=== PATIENT | female | born 1980 | race Caucasian/White ===

== ENCOUNTER 2022-01-23 08:38 | Emergency (ER) | payer BC, SELFPAY ==
--- NOTE | ~2022-01-23 | CT_ITS ---
EXAMINATION: CT abdomen pelvis wo con DATE: 01/23/2022 09:48 INDICATION: Left flank pain and hematuria TECHNIQUE: Computed tomography (CT) of the abdomen and pelvis was performed without intravenous contr ast. The dose-length product was 347.03 mGy-cm. Automated exposure control and iterative reconstructi on technique were employed. COMPARISON: CT dated 12/07/2009. FINDINGS: Lung bases unremarkable. Heart size normal. No significant pleural or pericardial effusion. No significant vascular abnormality. No lymphadenopathy. Colonic diverticulosis without evidence for diverticulitis. Small fat-containing umbilical hernia. Nonobstructive bowel gas pattern. No free air or free fluid. There are cholecystectomy clips. There are no abnormal pelvic masses or fluid collecti ons. There is a punctate nonobstructing left renal stone, image 59 and 75. There is a distal left ureteral stone measuring 1-2 mm, axial image 126. No significant hydronephrosis. No right renal stones or hyd ronephrosis. There is fatty infiltration of the liver. Status post cholecystectomy. The spleen, pancr eas, adrenal glands are unremarkable. Small fat-containing umbilical hernia. Mild lumbar spondylosis. IMPRESSION: 1. Punctate 1-2 mm distal left ureteral stone without significant hydronephrosis. 2: Nonobstructing left nephrolithiasis. Reviewed, dictated and finalized at location B. IMPRESSION: 1. Punctate 1-2 mm distal left ureteral stone without significant hydronephrosi s. 2: Nonobstructing left nephrolithiasis.
[2022-01-23 08:40] VITALS: BP 138/72; PULSE 90; RESP 16; TEMP 36.3; O2SAT 98
[2022-01-23 08:49] VITALS: O2SAT 98
--- NOTE | 2022-01-23 08:52 | ED.BACK ---
HPI - Back Pain/Injury General Chief Complaint: Back Pain/Injury Stated Complaint: back pain Time Seen by Provider: 01/23/22 08:44 History of Present Illness HPI Narrative: 41-year-old female presents to the emergency room for evaluation of low back pain that has been present for over 6 months. Patient describes the pain as a dull throbbing pain and does not radiate. Patient states the pain is worse with movement specifically trunk rotation. Patient denies any abdominal pain. Patient states the pain does not radiate. Patient denies any saddle anesthesia. Patient denies any injury or trauma. Patient does admit to decreased urinary flow, but denies any hematuria. Related Data Home Medications Medication Instructions Recorded Confirmed alprazolam 0.25 mg tablet tablet 01/23/22 famotidine 40 mg tablet tablet 01/23/22 01/23/22 zolpidem 10 mg tablet tablet 01/23/22 01/23/22 Allergies Allergy/AdvReac Type Severity Reaction Status Date / Time No Known Allergies Allergy Verified 01/23/22 09:11 Review of Systems Review of Systems: CONSTITUTIONAL: Denies fever, chills, or sweats. EYES: Denies visual changes, redness, or discharge. ENT: Denies rhinorrhea, congestion, sore throat, or otalgia. CARDIOVASCULAR: Denies chest pain, palpitations, or edema. RESPIRATORY: Denies cough or dyspnea. GASTROINTESTINAL: Denies abdominal pain, nausea, vomiting, or diarrhea. GENITOURINARY: Denies dysuria or hematuria. SKIN: Denies rash or itching. MUSCULOSKELETAL: Reports low back pain NEUROLOGIC: Denies headache, numbness, dizziness, or weakness. PSYCHIATRIC: Denies anxiety or depression. [facility] Family History Family History Other Family history of gallbladder disease Social History Social History Smoking status: Former smoker Smoking end date: 08/18/11 Alcohol intake: never Exam Narrative: GENERAL: Well-appearing, well-nourished, and in no acute distress. HEAD: Normocephalic, atraumatic. EYES: PERRLA and EOMI. CHEST: Clear to auscultation. No respiratory distress. No wheezes rales or rhonchi HEART: Regular rate and rhythm. No murmur heard. Normal peripheral pulses. ABDOMEN: Soft, nontender, nondistended, normal active bowel sounds. No CVA tenderness EXTREMITIES: Normal range of motion. No edema. BACK: No midline lumbar tenderness, no step-offs. Tenderness to the thoracolumbar fascia, full range of motion, pain elicited with bilateral rotation of the lumbar spine SKIN: Warm, dry, no rash. NEURO: No focal deficits. Alert and oriented x3. No saddle anesthesia PSYCH: Normal mood and affect. Course Vital Signs Vital signs: Vital Signs Temperature 36.3 C L 01/23/22 08:40 Pulse Rate 90 01/23/22 08:40 Respiratory Rate 16 01/23/22 08:40 Blood Pressure 138/72 01/23/22 08:40 Pulse Oximetry 98 01/23/22 08:40 Temperature 36.3 C L 01/23/22 08:40 Pulse Rate 90 01/23/22 08:40 Respiratory Rate 16 01/23/22 08:40 Blood Pressure 138/72 01/23/22 08:40 Pulse Oximetry 98 01/23/22 08:40 MDM - Back Pain/Injury MDM Narrative Medical decision making narrative: 41-year-old female presented the emergency room with bilateral flank pain right greater than left likely secondary to renal colic from obstructed, not infected kidney stone. CT scan shows a 1mm obstructive kidney stone to the left distal ureter with no signs of hydronephrosis. Urine shows positive for hematuria, no evidence of infection. At this time patient was refusing IV fluids and IV Toradol. Patient was given a shot of IM Toradol and sent home with antiemetics and pain medicine with instructions to push fluids. Imaging Data Radiologist's impression: Impressions Abdomen/Pelvis CT 01/23/22 09:51 IMPRESSION: 1. Punctate 1-2 mm distal left ureteral stone without significant hydronephrosis. 2: Nonobstructing left nephr
--- NOTE | 2022-01-23 08:52 | PC.NURSE ---
EDP at bedside to assess pt.
[2022-01-23 09:17] LABS: Appearance Urine Slightly Cloudy (Clear); Bilirubin Urine Negative (Negative); Blood Urine 2+ (Negative); Color Urine Yellow (Yellow); Glucose Urine UA Negative (Negative); Ketones Urine Negative (Negative); Leukocyte Esterase Ur Negative LEU/UL (Negative); Nitrate Urine Negative (Negative); Protein Urine Negative (Negative); Specific Grav Ur 1.025 (1.001-1.035); Urobilinogen Urine 0.2 mg/dL (<2.0); pH Urine 6.5 (5.0-9.0)
[2022-01-23 09:21] LABS: Bacteria Urine Trace /hpf; Mucus Urine Rare /lpf; RBC Urine 21-50 /hpf (0-2); Squamous Epithelial Cell Urine Many /hpf (Few); WBC Urine 0-3 /hpf
[2022-01-23 09:31] LABS: Pregnancy On Board Control Positive; Urine Pregnancy Test Negative
[2022-01-23 09:33] LABS: Add Urine Microscopic? YES
[2022-01-23] MEDS: KETOROLAC (*BKC) 60 MG/2 ML VIAL IM (10:36)
== END 2022-01-23 11:18 | disposition home or self-care (01) ==
PROVIDERS: Emergency Provider Nurse Practitioner Family; PCP Family Medicine
DX: N20.2 Calculus of kidney with calculus of ureter (principal)
CPT/HCPCS: 74176; 81001; 81025; 96372; 99284; J1885

== ENCOUNTER → 2022-12-20 14:06 | Outpatient (CLI) | payer OTHER, SELFPAY ==
--- NOTE | ~2022-12-20 | MMUS_ITS ---
EXAMINATION: MM diagnostic jeanette BI w regulo, US breast BI limited HISTORY: Palpable masses in the upper inner breasts. TECHNIQUE: Craniocaudal, mediolateral, and mediolateral oblique 3-D tomosynthesis images of the breas ts were performed and synthetic 2-D images were generated. CAD analysis was submitted and interpreted . High resolution limited bilateral breast ultrasound was performed. COMPARISON: 09/22/2014 FINDINGS: MAMMOGRAPHIC FINDINGS: No suspicious mass, calcification, or architectural distortion are identified in either breast to sug gest malignancy. There has been no suspicious interval change. No mammographic correlate is identifie d for the reported palpable abnormalities of the breasts. ULTRASOUND: No suspicious cystic or solid mass is identified in either breast to correspond to the areas of palpa ble concern. In the right breast, there appears to be a stable isoechoic mass with sonographic featur es consistent with a lipoma. IMPRESSION: 1. No suspicious mammographic or sonographic correlate is identified for the reported palpable abnorm alities of concern. Further evaluation at this time should be based on clinical assessment. Continued follow-up physical examination is recommended. 2. Recommend routine screening mammography in one year. BI-RADS Category 2: Benign finding(s). Reviewed, dictated and finalized at location A. IMPRESSION: 1. No suspicious mammographic or sonographic correlate is identified for the re ported palpable abnormalities of concern. Further evaluation at this time shoul d be based on clinical assessment. Continued follow-up physical examination is recommended. 2. Recommend routine screening mammography in one year. BI-RADS Category 2: Benign finding(s).
== END ==
PROVIDERS: PCP Obstetrics & Gynecology; Visit Provider Obstetrics & Gynecology
DX: N63.15 Unspecified lump in the right breast, overlapping quadrants (principal)
CPT/HCPCS: 76642; 77062; 77066; G0279

== ENCOUNTER 2024-03-09 15:30 | Outpatient (CLI) | payer OTHER, SELFPAY ==
--- NOTE | 2024-03-09 15:30 | ECG_ITS ---
Test Date: 2024-03-09 15:58:30 Measurements Intervals [place] Rate: 80 P: 36 AR: 151 QRS: 9 QRSD: 92 T: -25 QT: 368 QTc: 426 Interpretive Statements SINUS RHYTHM POOR R WAVE PROGRESSION T WAVE ABNORMALITY IN INFERIOR LEADS- CONSIDER ISCHEMIA BASELINE ARTIFACT- I, II, III, AVR, AVL, AVF ABNORMAL ECG No previous ECG available for comparison Electronically Signed On 03-09-2024 16:07:35 CDT by Virgilio Borden D.O.
[2024-03-09 16:14] LABS: Hemoglobin 13.7 g/dL (12.0-15.0); Mean Corpuscular HGB Conc 31.9 g/dl (32-36); Mean Corpuscular Hemoglobin 28.1 pg (26-34); Mean Corpuscular Volume 88.3 fl (80-100); Mean Platelet Volume 11.3 fl (7.4-10.4); Platelet Count Result 320 k/mm3 (150-375); Red Blood Count 4.87 M/mm3 (4.2-5.4); Red Cell Distribution Width 14.1 % (11.5-14.5); White Blood Count 12.8 K/mm3 (4.5-10.0)
== END 2024-03-09 15:31 | disposition home or self-care (01) ==
LOC: ANHSURGERY 15:33
PROVIDERS: PCP Family Medicine; Visit Provider Obstetrics & Gynecology
DX: Z01.818 Encounter for other preprocedural examination (principal); N92.1 Excessive and frequent menstruation with irregular cycle; R94.31 Abnormal electrocardiogram [ECG] [EKG]; Z87.891 Personal history of nicotine dependence
CPT/HCPCS: 36415; 85027; 93005

== ENCOUNTER 2024-03-11 01:23 | Day surgery (SDC) | payer OTHER, SELFPAY ==
--- NOTE | 2024-03-05 13:58 | SUR.PREOP ---
Report to the Outpatient Waiting Room, entrance under the green pavilion located off [facility], at time 0730 on date 03/11/24. Planned Procedure Time: 0930. Time changes happen often and if your time is changed the preop area will call you the afternoon before. - You and your visitor will be asked to self-screen and do not enter if you have any COVID symptoms. - A mask is optional within the hospital at this time. Patients may have clear liquids (water, carbonated beverages, clear teas, apple juice) until 3 hours prior to surgery with a maximum of 20 ounces. - NO CLEAR LIQUIDS AFTER 0630 - No food from midnight until time of surgery - Infants may have breast milk until 4 hours before surgery, formula 6 hours prior to surgery. - Children will be allowed to drink immediately following surgery. If applicable, please bring a bottle or sippy cup to assist with drinking. Juice, water, soda, and popsicles are readily available. For infants on formula, please bring formula the day of surgery. Pacifiers are allowed. Take the following medications with a SIP of water the morning of surgery: ALPRAZOLAM DO NOT STOP ANY OF YOUR OTHER PRESCRIPTION MEDICATIONS PRIOR TO SURGERY ?EXCEPT THE FOLLOWING Medications to discontinue per physician N/A Date to take last dose Please no make-up, nail yi, hairspray, perfume, deodorant, or body powder the day of surgery. No jewelry (including any body piercings) or valuables the day of surgery, leave them at home. Please take a shower or bath the night before, or the morning of, surgery with an antibacterial soap. Wear comfortable, loose fitting clothing. Children are encouraged to wear pajamas. - Jewelry must be removed prior to entering the operating room. Rings and piercings that are not removed may be cut off. - The hospital will not accept responsibility for valuables. - Please leave all valuables, including medications, at home the day of surgery. If you are going home after surgery, a licensed van cdl driver must drive you home. - NO public transportation without another adult if you receive anesthesia. - We recommend that an adult stay with you for 24 hours following discharge. - We also recommend that you do not drive, make important decision, drink alcoholic beverages, or take any drugs that were not prescribed by your health care provider for at least 24 hours after your discharge time. For Pediatric surgeries, we recommend two adults accompany the child home. Follow any additional instructions given to you from your surgeon. If you or anyone in your household have experienced Covid symptoms in the past week, please notify your surgeon or the nurse liaison at the phone number below for possible testing. Telephone instructions given to CHRISTI JACOB and asked if any additional questions and then verbalized understanding. Patient advised to call surgeon office or pre surgery nurse liaison [phone] if any additional questions.
[2024-03-05 14:11] VITALS: BMI 40.1
--- NOTE | 2024-03-10 16:20 | PM.IMHP ---
H&P: HPI History of Present Illness Date/Time: 03/10/24 16:20 43-year-old female presents for evaluation/ treatment of heavy menstrual cycles. Cycles are lasting 7-10 days with 4 days very heavy with a lot of cramping and discomfort. The discomfort is significant enough that she is unable to perform activities daily living, the rest of the month she does fine. Ultrasound evaluation did reveal 2cm fibroid and mildly enlarged uterus with no other significant abnormalities. Does have a history of 4 prior deliveries. Also interested in permanent sterilization, we did discuss failure rate and risk of ectopic and regret. Patient strongly desires to proceed. 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00 Smoking status: Former smoker Tobacco type: cigarettes Second hand tobacco smoke exposure: No Smoking end date: 08/18/11 Alcohol intake: never Substance use: never Substance use type: does not use Living arrangements: with family Additional living arrangements comments: Occupation/Education: occupation 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 Gender identity (if verbalized by the patient): Female Sexual Orientation (if Verbalized by the Patient): Straight or Heterosexual Spiritual care concerns: No Meds Home Medications and Allergies Home Medications Medication Instructions Recorded Confirmed Type alprazolam 0.25 mg tablet 0.25 tablet PO PRN PRN Anxiety 01/23/22 03/05/24 History zolpidem 10 mg tablet 10 tablet PO HS 01/23/22 03/05/24 History sulfamethoxazole 800 1 tablet PO Q12H PRN CYSTS 03/05/24 03/05/24 History mg-trimethoprim 160 mg tablet (Bactrim DS) Allergies Allergy/AdvReac Type Severity Reaction Status Date / Time No Known Allergies Allergy Verified 03/05/24 13:45 Exam Const: General: cooperative and healthy appearing Resp: Effort & Inspection: normal respiratory effort Auscultation: clear to auscultation bilaterally Cardio: Rate: regular rate Rhythm: regular rhythm GI: Inspection: normal to inspection and incision Auscultation: normal bowel sounds : External Female Exam: normal external appearance Speculum Exam - Vagina: normal appearance of the vagina Speculum Exam - Cervix: normal appearance of the cervix Bimanual exam- vagina & uterus: normal bimanual exam and enlarged ( 8-10 week size) Bimanual Exam- Adnexa, other: normal adnexae Assessment and Plan Assessment and plan (1) Menometrorrhagia: Code(s): N92.1 - Excessive and frequent menstruation with irregular cycle Status: Acute (2) Dysmenorrhea: Code(s): N94.6 - Dysmenorrhea, unspecified Status: Acute (3) Uterine fibroid: Code(s): D25.9 - Leiomyoma of uterus, unspecified Status: Acute (4) Encounter for female sterilization procedure: Code(s): Z30.2 - Encounter for sterilization Status: Acute (5) History of :
[2024-03-11] VITALS (10 sets, daily range): BP systolic 116–159; BP diastolic 70–95; PULSE 66–97; RESP 15–20; TEMP 36.3–36.6; O2SAT 94–99
--- NOTE | 2024-03-11 06:42 | WPDHPUPDATE1 ---
History and Physical Update Update Date/Time: 03/11/24 06:42 History and Physical has been reviewed, including an updated exam of the patient. There are NO changes in the patient's condition. Risks, benefits, and alternatives have been discussed and questions answered. Patient agrees to proceed with procedure.
[2024-03-11] MEDS: ACETAMINOPHEN 500 MG TABLET 1000 MG PO (07:41)
[2024-03-11] MEDS: LACTATED RINGERS 1,000 ML 30 ML IV CONT ×2 (07:45→09:21)
[2024-03-11] MEDS: KETOROLAC 15 MG/ML VIAL (*BKC) IV PUSH (07:53)
--- NOTE | 2024-03-11 08:00 | WPDANESEPPF ---
Anes - Initial Pre Proc Eval Procedure: Operation Date: 03/11/24 08:30 Proposed Procedures p Laparoscopic Bilateral Salpingectomy, Hysteroscopy, Dilation and Curettage, Roxane Endometrial Ablation - Nguyễn Guajardo MD Date/Time: 03/11/24 08:00 Surgeon: Nguyễn Guajardo MD Pre Op Diagnosis: menometrorrhagia Patient Data Age: 43 Gender: F Height: 1.61 m Weight: 104.5 kg Allergies Allergy/AdvReac Type Severity Reaction Status Date / Time No Known Allergies Allergy Verified 03/11/24 07:07 Home Medications Medication Instructions Recorded Confirmed Type alprazolam 0.25 mg tablet 0.25 tablet PO PRN PRN Anxiety 01/23/22 03/11/24 History zolpidem 10 mg tablet 10 tablet PO HS 01/23/22 03/11/24 History sulfamethoxazole 800 1 tablet PO Q12H PRN CYSTS 03/05/24 03/05/24 History mg-trimethoprim 160 mg tablet (Bactrim DS) Patient hx anesthesia problems: none Family hx anesthesia problems: none Results Review: All pre-operative results and documents have been reviewed as part of the pre-operative evaluation. 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) Frequent headaches Screening mammogram, encounter for Surgical History Surgical History History of 1998, 2002, 2005, 2011 History of carpal tunnel surgery (~2000) both wrists History of cholecystectomy (~03/18/12) History of dilation and curettage 12/23/13 [facility] d&c History of partial thyroidectomy (~2015) Family History Family History Other Diabetes mellitus maternal aunt Other Family history of gallbladder disease Social History Social History Smoking packs per day: 2 Smoking cigarettes per day: 40.0 Years smoked: 18 Smoking pack-years: 36.00 Smoking status: Former smoker Tobacco type: cigarettes Second hand tobacco smoke exposure: No Smoking end date: 08/18/11 Alcohol intake: never Substance use: never Substance use type: does not use Living arrangements: with family Additional living arrangements comments: Occupation/Education: occupation 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 ) Neurological: alert and oriented Last oral intake: >/= 8 hours ASA classification: III Emergent: no Anesthetic plan: proceed Anesthesia type and monitoring: general ETT and standard monitoring Results Review: All pre-operative results and documents have been reviewed as part of the pre-operative evaluation. Pt w JIN, noncompliant w CPAP, ex smoker, quit approx 2011. Informed Consent: The patient's anesthetic plan and its attendant risks and benefits were discussed with the patient/family/POA. Questions were solicited and answers provided to the satisfaction of the patient/family/POA.
[2024-03-11] MEDS: ceFAZolin 2 GM/D5W 50 ML 2 GM/50 ML BAG IVPB (08:27)
--- NOTE | 2024-03-11 09:21 | W.PM.PROC2 ---
Procedure Note - Detailed Date of Procedure 03/11/24 Pre-op Diagnosis 1. Menometrorrhagia 2. Dysmenorrhea 3. Undesired fertility 4. Prior section x4 Post-op Diagnosis Same (5. Adhesions) Procedure Performed 1. Laparoscopic adhesiolysis 2. Laparoscopic bilateral salpingectomy 3. Hysteroscopy with uterine curettings 4. Endometrial ablation Surgeon Nguyễn Guajardo MD Anesthesia General Findings 1. Hysteroscopic exam revealed slightly thickened tissue though no specific abnormalities were appreciated 2. Laparoscopic exam revealed omental adhesions to the anterior abdominal wall, obscuring the left pelvic sidewall and adnexa. Significant adhesions of the bladder flap as well. Description of Procedure Patient was prepped and draped in usual manner for this procedure. Cervical instruments were placed for uterine mobility throughout the case. Abdominal trocar sites were marked and placed under direct visualization with findings as noted above. Using the LigaSure instrument the omental adhesions were taken down to adequately visualize the left adnexa. Mesial salpinx bilaterally cauterized and cut and tubes removed without difficulty. Small amount of oozing of the left adnexa was rendered hemostatic and Surgicel powder was placed empirically. Attention was then placed to the vaginal area where the cervix was dilated to allow the hysteroscope be placed which did reveal no significant abnormalities. Uterine curettings were obtained. And the need Roxane instrument was placed, cavity assessment performed, and instrument activated. At the end of the procedure scope was again placed with destruction noted throughout. Of note the brimming machine operator scope also was used during the hysteroscopic portion of the procedure which showed no damage to the integrity of the uterus itself. At this point the procedure was considered terminated and the patient was sent to recovery room in stable condition. Estimated Blood Loss 10 Drains No Packing No Pathology Yes Complications No immediate complications Condition Stable Disposition PACU [facility] Billing Surgery - Charge Forward: Surgery Billing
[2024-03-11] MEDS: ONDANSETRON INJ 4 MG/2 ML VIAL IV PUSH (09:46)
[2024-03-11] MEDS: fentaNYL CITRATE INJ (*CRX) 100 MCG/2 ML VIAL 25 MCG IV PUSH ×2 (09:50→09:53)
[2024-03-11] MEDS: HYDROmorphone HCL INJ (*CRX) 1 MG/ML SYR 0.25 MG IV PUSH ×3 (10:06→10:50)
[2024-03-11] MEDS: diphenhydrAMINE HCl INJ 50 MG/ML VIAL 12.5 MG IV PUSH ×2 (10:07→10:35)
[2024-03-11] MEDS: oxyCODONE HCL (*CRX) 5 MG TAB IR PO (11:49)
== END 2024-03-11 12:32 | disposition home or self-care (01) ==
PROVIDERS: PCP Family Medicine; Visit Provider Obstetrics & Gynecology
PROC: 0UDB8ZZ Extraction of Endometrium, Via Natural or Artificial Opening Endoscopic (ICD-10-PCS; CPT 58558; principal; 2024-03-11 08:30)
DX: N92.1 Excessive and frequent menstruation with irregular cycle (principal); N94.6 Dysmenorrhea, unspecified; N73.6 Female pelvic peritoneal adhesions (postinfective); Z30.2 Encounter for sterilization; Z98.891 History of uterine scar from previous surgery; Z87.891 Personal history of nicotine dependence; E66.9 Obesity, unspecified; Z68.39 Body mass index [BMI] 39.0-39.9, adult
CPT/HCPCS: 58661; 58563; 36415; 85027; 88302; 88305; 93005; A9270; J0690; J1100; J1170; J1200; J1885; J2250; J2405; J2704; J3010; J7120